=== PATIENT | male | born 1975 | race Caucasian/White ===

== ENCOUNTER 2020-06-29 09:31 | Emergency (ER) | payer BC ==
[~2020-06-29] VITALS: Ht 172.7 cm; Wt 101.0 kg
[2020-06-29] MEDS ORDERED: DEXAMETHASONE SOD PHOS 10 MG/1 ML VIAL IM ONE (09:45)
[2020-06-29] MEDS ORDERED: DIPHENHYDRAMINE25 MG PO (09:55)
[2020-06-29] MEDS ORDERED: MOMETASONE FURO15 G1 TOP (09:55)
[2020-06-29] MEDS ORDERED: PREDNISONE20 MG PO (09:55)
[2020-06-29] MEDS ORDERED: DEXAMETHASONE SOD PHOS INJ 4 MG/ML VIAL ONE (10:16)
== END 2020-06-29 10:20 | disposition home or self-care (01) ==
LOC: FSED 09:50
DX: L23.7 Allergic contact dermatitis due to plants, except food (principal)
CPT/HCPCS: 96372; 99282; J1100 ×2